=== PATIENT | male | born 1980 | race Caucasian/White ===

== ENCOUNTER 2017-02-12 00:25 | Emergency (ER) | payer MEDICAID ==
[~2017-02-12] VITALS: Ht 188 cm; Wt 115.0 kg
[~2017-02-12 00:25] MED LIST: CLOT15CR5 TP; CYCL-259 PO; DIAZ10TA PO; DIAZ5TAB PO; GABA300C10 PO; GABA600T2 PO; LISI1TAB7 PO; METH4TAB2 PO; NAPR500T3 PO; OXYC-229 PO; OXYC-302 PO; OXYC1TAB9 PO
[2017-02-12] MEDS ORDERED: KETOROLAC 30 MG/1 ML IVPush ONE (01:00)
[2017-02-12] MEDS ORDERED: ONDANSETRON 2MG/ML, 2ML IVPush ONE (01:00)
[2017-02-12] MEDS ORDERED: DIAZEPAM 5 MG/ML, 2ML IVPush ONE (01:00)
[2017-02-12] MEDS ORDERED: MORPHINE SULFATE 4 MG/ML, 1ML IVPush ONE (01:00)
[2017-02-12] MEDS ORDERED: SODIUM CHLORIDE FLUSH 10ML SYR IVF ONE (01:00)
[2017-02-12] MEDS ORDERED: KETOROLAC 30 MG/1 ML ONE (01:09)
[2017-02-12] MEDS ORDERED: ONDANSETRON 2MG/ML, 2ML ONE (01:09)
[2017-02-12] MEDS ORDERED: DIAZEPAM 5 MG/ML, 2ML ONE (01:09)
[2017-02-12] MEDS ORDERED: MORPHINE SULFATE 4 MG/ML, 1ML ONE (01:09)
[2017-02-12 01:11] LABS: HEMOGLOBIN 15.4 g/dL (13.7-18.0)
[2017-02-12 01:25] LABS: BLOOD UREA NITROGEN 17 mg/dL (7-18)
[2017-02-12 01:29] LABS: IS PT STATUS REG ER OR PRE ER? YES
[2017-02-12 01:40] VITALS: BP 121/64
== END 2017-02-12 02:02 | disposition home or self-care (01) ==
LOC: ED 01:54
DX: S29.012A Strain of muscle and tendon of back wall of thorax, initial encounter (principal); I10 Essential (primary) hypertension; Z88.0 Allergy status to penicillin; M54.2 Cervicalgia; Z88.1 Allergy status to other antibiotic agents; Z88.8 Allergy status to other drugs, medicaments and biological substances; X58.XXXA Exposure to other specified factors, initial encounter; Y93.89 Activity, other specified; Y92.89 Other specified places as the place of occurrence of the external cause; Y99.9 Unspecified external cause status
CPT/HCPCS: 36415; 71010; 80048; 82040; 84484; 85025; 93005; 96374; 96375; 99285; J1885; J2405; J3360

== ENCOUNTER 2017-04-03 18:37 | Emergency (ER) | payer MEDICAID ==
[~2017-04-03] VITALS: Ht 188 cm; Wt 123.5 kg
[2017-04-03] MEDS ORDERED: SODIUM CHLORIDE 0.9% 1,000ML IVBOLUS ONE (19:00)
[2017-04-03] MEDS ORDERED: SODIUM CHLORIDE FLUSH 10ML SYR IVF ONE (19:00)
[2017-04-03 19:28] LABS: ASPARTATE AMINO TRANSFERASE 27 U/L (15-37); BLOOD UREA NITROGEN 17 mg/dL (7-18)
[2017-04-03 20:56] VITALS: BP 131/74
== END 2017-04-03 20:58 | disposition home or self-care (01) ==
LOC: ED 20:52
DX: F19.939 Other psychoactive substance use, unspecified with withdrawal, unspecified (principal); I10 Essential (primary) hypertension; M54.30 Sciatica, unspecified side; M54.9 Dorsalgia, unspecified; M89.29 Other disorders of bone development and growth, multiple sites; Z88.0 Allergy status to penicillin; Z88.1 Allergy status to other antibiotic agents; Z88.6 Allergy status to analgesic agent; Z87.891 Personal history of nicotine dependence
CPT/HCPCS: 36415; 80053; 83690; 85025; 96360; 96361; 99285; J7030

== ENCOUNTER 2018-01-15 07:06 | Emergency (ER) | payer BC, MEDICAID ==
[~2018-01-15] VITALS: Ht 188 cm; Wt 134.4 kg
[~2018-01-15 07:06] MED LIST changes: -NAPR500T3 PO; +NAPR500T4 PO; -OXYC-229 PO; +OXYC-307 PO
[2018-01-15] MEDS ORDERED: DIAZEPAM 5 MG TABLET ONE (07:36)
[2018-01-15] MEDS ORDERED: KETOROLAC 30 MG/1 ML ONE (07:36)
[2018-01-15] MEDS ORDERED: TEST200V21 IM (07:48)
[2018-01-15] MEDS ORDERED: ONDANSETRON ODT 4 MG ONE (07:54)
[2018-01-15] MEDS ORDERED: ONDANSETRON ODT 4 MG PO ONE (08:00)
[2018-01-15] MEDS ORDERED: DIAZEPAM 5 MG TABLET PO ONE (08:00)
[2018-01-15] MEDS ORDERED: KETOROLAC 30 MG/1 ML IM ONE (08:00)
[2018-01-15 08:58] VITALS: BP 119/79
== END 2018-01-15 09:22 | disposition left against medical advice (07) ==
LOC: ED 08:27
DX: S16.1XXA Strain of muscle, fascia and tendon at neck level, initial encounter (principal); S29.012A Strain of muscle and tendon of back wall of thorax, initial encounter; G89.29 Other chronic pain; I10 Essential (primary) hypertension; X58.XXXA Exposure to other specified factors, initial encounter; Y93.89 Activity, other specified; Y92.89 Other specified places as the place of occurrence of the external cause; Y99.8 Other external cause status
CPT/HCPCS: 96372; 99283; J1885; Q0162

== ENCOUNTER 2019-12-15 18:34 | Emergency (ER) | payer SELFPAY ==
[~2019-12-15 18:34] MED LIST changes: -GABA600T2 PO; +GABA600T7 PO; +LISI1TAB20 PO; -LISI1TAB7 PO; +NAPR-685 PO; -NAPR500T4 PO; +OXYC-432 PO; -OXYC1TAB9 PO; +TEST200V21 IM
--- NOTE | 2019-12-15 18:39 | NUR ---
CALLED FOR TRIAGE, NO ANSWER
--- NOTE | 2019-12-15 18:44 | NUR ---
CALLED FOR TRIAGE, NO ANSWER
--- NOTE | 2019-12-15 19:00 | NUR ---
NO ANSWER WHEN CALLED FOR TRIAGE @ 1900.
== END 2019-12-15 19:35 | disposition left against medical advice (07) ==
LOC: ED 19:00
DX: Z53.21 Procedure and treatment not carried out due to patient leaving prior to being seen by health care provider (principal)

== ENCOUNTER 2019-12-16 05:49 | Emergency (ER) | payer SELFPAY ==
[~2019-12-16] VITALS: Ht 188 cm; Wt 109.5 kg
[2019-12-16 05:51] VITALS: BP 176/132
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
--- NOTE | 2019-12-16 07:25 | NUR ---
PT REQUESTING PAIN MEDS ATTEMPTING TO GET TO ERP NO RESULTS ON XR AT THIS TIME
--- NOTE | 2019-12-16 07:50 | NUR ---
PT AT REG DESK DEMMADING TO LEAVE CONSIDERED ELOPEMENT ERP HAS NOT BEEN ABLE TO TALK W PT RE FX AND FOLLOW UP
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
== END 2019-12-16 08:03 | disposition left against medical advice (07) ==
LOC: ED 06:28
DX: S62.366A Nondisplaced fracture of neck of fifth metacarpal bone, right hand, initial encounter for closed fracture (principal); F17.200 Nicotine dependence, unspecified, uncomplicated; W22.8XXA Striking against or struck by other objects, initial encounter; Y93.89 Activity, other specified; Y92.009 Unspecified place in unspecified non-institutional (private) residence as the place of occurrence of the external cause; Y99.8 Other external cause status
CPT/HCPCS: 99283

== ENCOUNTER 2020-01-19 14:29 | Emergency (ER) | payer MEDICAID ==
[~2020-01-19] VITALS: Ht 188 cm; Wt 107.2 kg
[2020-01-19] MEDS ORDERED: SODIUM CHLORIDE 0.9% 1,000 ML IV ONE (15:02)
--- NOTE | 2020-01-19 15:18 | NUR ---
pt resting in gurney, changed into gown, given cool wash cloth for comfort, blood sent to lab, NAD, denies additional needs, WCTM. Room lights off and curtain closed for maximal pt comfort, Marlin KINNEY performed assessment and discussed plan of care with pt
[2020-01-19] MEDS ORDERED: ONDANSETRON 2MG/ML, 2ML ONE (15:24)
[2020-01-19] MEDS ORDERED: HYDROmorphone 1 MG/ML, 1ML INJ ONE (15:24)
[2020-01-19] MEDS ORDERED: HYDROmorphone 1 MG/ML, 1ML INJ IVPush PRN (15:30)
[2020-01-19] MEDS ORDERED: ONDANSETRON 2MG/ML, 2ML IVPush ONE (15:30)
[2020-01-19] MEDS ORDERED: SODIUM CHLORIDE 0.9% 1,000ML IVBOLUS ONE (15:30)
[2020-01-19] MEDS ORDERED: SODIUM CHLORIDE FLUSH 10ML SYR IVF ONE (15:30)
[2020-01-19 15:53] LABS: BASOPHILS # (AUTO) 0.04 x10^3/uL (0-0.1); BASOPHILS % (AUTO) 0 % (0-1); EOSINOPHILS # (AUTO) 0.27 x10^3/uL (0-0.4); EOSINOPHILS % (AUTO) 3 % (1-7); LYMPHOCYTES # (AUTO) 2.48 x10^3/uL (1-3.4); LYMPHOCYTES % (AUTO) 30 % (22-44); MD NO; MEAN CORPUSCULAR HEMOGLOBIN 33.4 pg (27.5-34.5); MEAN CORPUSCULAR HGB CONC 34.7 g/dL (33.2-36.2); MEAN CORPUSCULAR VOLUME 96.1 fL (81-97); MEAN PLATELET VOLUME 7.8 fL (7.4-10.4); MONOCYTES # (AUTO) 0.49 x10^3/uL (0.2-0.8); MONOCYTES % (AUTO) 6 % (2-9); NEUTROPHILS # (AUTO) 5.05 x10^3/uL (1.8-6.8); NEUTROPHILS % (AUTO) 61 % (42-75); PLATELET COUNT 219 x10^3/uL (130-400); RED BLOOD COUNT 5.52 x10^6/uL (4.38-5.82); RED CELL DISTRIBUTION WIDTH 12.4 % (9.4-14.8)
[2020-01-19 15:59] LABS: ALBUMIN 3.9 g/dL (3.4-5.0); ANION GAP 8 mmol/L (5-15); CALCIUM 8.9 mg/dL (8.5-10.1); CHLORIDE 111 mmol/L (98-107)
[2020-01-19 16:00] LABS: CREATININE 0.94 mg/dL (0.7-1.3)
[2020-01-19] MEDS ORDERED: OMNIPAQUE 350 MG/ML, 100ML BOTTLE ONE (16:41)
[2020-01-19 18:17] VITALS: BP 155/85
== END 2020-01-19 18:19 | disposition home or self-care (01) ==
LOC: ED 15:29
DX: G43.909 Migraine, unspecified, not intractable, without status migrainosus (principal); I10 Essential (primary) hypertension
CPT/HCPCS: 36415; 70450; 70496; 80048; 82040; 85025; 96361; 96374; 96375; 99285; J1170; J2405; J7030; Q9967

== ENCOUNTER 2021-08-09 07:06 | Emergency (ER) | payer MEDICAID ==
[~2021-08-09] VITALS: Ht 188 cm; Wt 129.0 kg
[2021-08-09 10:52] VITALS: BP 166/87
== END 2021-08-09 11:28 | disposition home or self-care (01) ==
LOC: ED 07:35
DX: K40.90 Unilateral inguinal hernia, without obstruction or gangrene, not specified as recurrent (principal); R10.32 Left lower quadrant pain; I10 Essential (primary) hypertension; F17.200 Nicotine dependence, unspecified, uncomplicated
CPT/HCPCS: 36415; 74177; 80053; 85025; 96374; 96375; 99285; J2270; J2405; Q9967